=== PATIENT | male | born 1965 | race Caucasian/White ===

== ENCOUNTER → 2017-04-30 | Emergency (ER) | payer OTHER ==
[~2017-04-30] VITALS: Ht 177.8 cm; Wt 108.9 kg
--- NOTE | 2017-04-30 20:15 | NUR ---
CALLED IN FOR [facility]. PT HAD ALREADY UPON [place]APLA[place] ARRIVAL. I GOT THE FAMILY SITUATED IN THE FAMILY ROOM AND MADE SURE THEIR NEEDS WERE MET. WRECKING MECHANIC PRAYED WITH THE FAMILY. PT'S EXPRESSED A DESIRE TO HAVE HUSBANDS REMAINS CREAMATED AND EXPRESSED A DESIRE FOR [facility] TO PROVIDE THE SERVICES. WAS CALLED BUT INSTRUCTED NOT TO COME FAMILY WAS WAITING ON THE ARRIVAL OF THE PT'S SISTER. UPON ARRIVAL THE FAMILY WENT IN TO SEE PT ONE LAST TIME. WRECKING MECHANIC CALLED AGAIN WHO CAME AND PICKED UP PTS BODY.
== END ==
LOC: ED 16:27 → EDBD 16:28 → ED 16:28
DX: I46.9 Cardiac arrest, cause unspecified (principal)
CPT/HCPCS: 96374; 99285; J0171